=== PATIENT | female | born 1940 | race Caucasian/White ===

== ENCOUNTER 2017-03-20 16:01 | Emergency (ER) | payer OTHER ==
[~2017-03-20] VITALS: Ht 162.6 cm; Wt 108.4 kg
[2017-03-20 16:59] VITALS: BP 170/81
== END 2017-03-20 17:29 | disposition home or self-care (01) ==
LOC: ER 16:07
DX: T17.1XXA Foreign body in nostril, initial encounter (principal); I10 Essential (primary) hypertension; M10.9 Gout, unspecified; Z90.89 Acquired absence of other organs; Z90.710 Acquired absence of both cervix and uterus; Z88.8 Allergy status to other drugs, medicaments and biological substances; W45.8XXA Other foreign body or object entering through skin, initial encounter; Y93.89 Activity, other specified; Y99.8 Other external cause status; Y92.89 Other specified places as the place of occurrence of the external cause

== ENCOUNTER 2021-05-06 14:37 | Emergency (ER) | payer OTHER ==
[~2021-05-06] VITALS: Ht 162.6 cm; Wt 86.6 kg
[2021-05-06] MEDS ORDERED: FUROSEMIDE 40 MG/4 ML VIAL IV ONE (16:15)
[2021-05-06 18:24] LABS: Basophils # (auto) 0 10 ^3/uL (0-0.2); Basophils % (auto) 0.5 % (0.0-2.0); Eosinophils # (auto) 0 10 ^3/uL (0-0.8); Eosinophils % (auto) 0.2 % (0.0-7.0); Hematocrit 31.6 % (36.0-46.0); Hemoglobin 10.5 g/dL (12.2-16.2); Lymphocytes # (auto) 1.2 10 ^3/uL (0.4-5.4); Lymphocytes % (auto) 12.9 % (10.0-50.0); Mean Corpuscular Hemoglobin 29.7 pg (28.0-32.0); Mean Corpuscular Hgb Conc. 33.2 g/dL (32.0-36.0); Mean Corpuscular Volume 89.4 fL (80.0-100.0); Monocytes # (auto) 0.5 10 ^3/uL (0-1.3); Neutrophils # (auto) 7.4 10 ^3/uL (1.6-8.6); Neutrophils % (auto) 81.4 % (37.0-80.0); Red Blood Cells 3.53 10^6/uL (4.0-5.20); Red Cell Distribution Width 13.2 % (11.8-14.3); White Blood Cell 9.1 10^3/uL (4.4-10.8)
[2021-05-06 18:34] LABS: Albumin 2.5 g/dL (3.4-5.0); Calcium 7.6 mg/dL (8.5-10.1); Potassium 3.9 mmol/L (3.5-5.1)
[2021-05-06 18:40] LABS: BUN/Creatinine Ratio 15.8; Bilirubin, Total 0.6 mg/dL (0.2-1.0); Total Protein 5.9 g/dL (6.4-8.2)
[2021-05-06] MEDS ORDERED: HYDROcodone-ACET 5/325MG TAB PO ONE (19:30)
[2021-05-07] MEDS ORDERED: HYDROcodone-ACET 5/325MG TAB PO ONE (01:00)
[2021-05-07 01:05] VITALS: BP 108/75
== END 2021-05-07 01:40 | disposition home or self-care (01) ==
LOC: ER 14:37 → EDBD 14:37 → ER 05-07 01:40
DX: R07.89 Other chest pain (principal); I11.0 Hypertensive heart disease with heart failure; I50.9 Heart failure, unspecified; Z90.710 Acquired absence of both cervix and uterus
CPT/HCPCS: 36415; 71250; 80053; 83880; 84484; 85025; 93005

== ENCOUNTER 2021-06-04 16:00 | Inpatient (IN) | payer OTHER ==
[~2021-06-04] VITALS: Ht 162.6 cm; Wt 88.0 kg
[2021-06-04 21:53] LABS: Albumin 2.7 g/dL (3.4-5.0); Potassium 3.6 mmol/L (3.5-5.1)
[2021-06-04 21:54] LABS: Magnesium 2.4 mg/dL (1.6-2.6)
[2021-06-04 21:58] LABS: Phosphorus 3.5 mg/dL (2.5-4.90)
[2021-06-04 22:13] LABS: BUN/Creatinine Ratio 15.2; Bilirubin, Total 0.9 mg/dL (0.2-1.0); Total Protein 6.2 g/dL (6.4-8.2)
[2021-06-04 22:20] LABS: Basophils # (auto) 0 10 ^3/uL (0-0.2); Basophils % (auto) 0.4 % (0.0-2.0); Eosinophils # (auto) 0 10 ^3/uL (0-0.8); Eosinophils % (auto) 0.1 % (0.0-7.0); Hematocrit 29.4 % (36.0-46.0); Hemoglobin 9.9 g/dL (12.2-16.2); Lymphocytes # (auto) 0.6 10 ^3/uL (0.4-5.4); Lymphocytes % (auto) 7.3 % (10.0-50.0); Mean Corpuscular Hemoglobin 30.2 pg (28.0-32.0); Mean Corpuscular Hgb Conc. 33.5 g/dL (32.0-36.0); Mean Corpuscular Volume 90.1 fL (80.0-100.0); Monocytes # (auto) 0.3 10 ^3/uL (0-1.3); Monocytes % (auto) 4.2 % (0.0-12.0); Red Blood Cells 3.26 10^6/uL (4.0-5.20); Red Cell Distribution Width 14.1 % (11.8-14.3); White Blood Cell 7.9 10^3/uL (4.4-10.8)
[2021-06-04] MEDS ORDERED: SODIUM CHLORIDE 0.9% 500 ML IV ONE (23:45)
[2021-06-05] MEDS ORDERED: ASPirin 325 MG TAB PO ONE (00:45)
[2021-06-05] MEDS ORDERED: SODIUM CHLORIDE 0.9% 500 ML IV ONE (01:30)
[2021-06-05] MEDS ORDERED: NITROGLYCERIN 0.4 MG SL TAB SL PRN ×2 (18:15→21:30)
[2021-06-05] MEDS ORDERED: MORPHINE SULFATE INJECTION 2 MG/ML SYRG IV PRN ×3 (18:15→21:30)
[2021-06-05] MEDS ORDERED: LACTATED RINGER'S 1,000 ML IV ONE (19:45)
[2021-06-05] MEDS ORDERED: PANTOPRAZOLE 40 MG/10 ML VIAL INJ IV ONE ×2 (19:45→20:45)
[2021-06-05 19:58] LABS: Cholesterol 108 mg/dL (< 200); HDL Cholesterol 32 mg/dL (40-59); LDL Cholesterol 62 mg/dL (< 100); Triglycerides 103 mg/dL (< 150)
[2021-06-05] MEDS ORDERED: ARTIFICIAL TEARS 15ml EACHEYE PRN (20:45)
[2021-06-05] MEDS ORDERED: CYANOCOBALAMIN 500 MCG TAB PO ONE (20:45)
[2021-06-05] MEDS ORDERED: ARTIFICIAL TEARS 15ml EACHEYE ONE (20:45)
[2021-06-05] MEDS ORDERED: ZINC SULFATE 220mg CAP or TAB PO ONE (20:45)
[2021-06-05] MEDS ORDERED: ENOXAPARIN SOD 30 MG/0.3 ML SYRINGE SC ONE (21:00)
[2021-06-05 21:25] LABS: Uric Acid 14.9 mg/dL (2.6-6.0)
[2021-06-05] MEDS ORDERED: LORazepam 0.5 MG TAB PO PRN (21:30)
[2021-06-05] MEDS ORDERED: ACETAMINOPHEN 325 MG TAB PO PRN (21:30)
[2021-06-05] MEDS ORDERED: ALUM & MAG HYDROX-SIMETH LIQ(MAALOX) 30 ML PO PRN (21:30)
[2021-06-05] MEDS ORDERED: METOCLOPRAMIDE HCL 5MG/ml INJ 2ml VIAL IV PRN (21:30)
[2021-06-05] MEDS ORDERED: DOCUSATE SOD 100 MG CAP PO PRN (21:30)
[2021-06-05 21:34] LABS: CRP High Sensitivity 2.26 mg/dL (< 0.3)
[2021-06-05 22:00] VITALS: BP 134/55
[2021-06-05 22:28] VITALS: BP 134/55
[2021-06-05] MEDS: ATORVASTATIN 20 MG TAB PO SCH (23:27)
[2021-06-05] MEDS: SODIUM CHLORIDE 0.9% 1,000 ML IV SCH (23:29)
[2021-06-06] MEDS: HYDROcodone-ACET 5/325MG TAB PO PRN ×3 (02:29→18:43)
[2021-06-06 03:09] LABS: Urine Bacteria MOD /hpf (None Seen); Urine Blood Negative /uL (Negative); Urine Specific Gravity 1.014 (1.001-1.035); Urine WBC 11 /hpf (0 - 5); Urine WBC Clumps PRESENT /hpf (None Seen)
[2021-06-06 03:23] LABS: Alcohol, Urine < 3.0 mg/dL (0-10); Amphetamine Screen, Urine NEGATIVE (NEGATIVE); Barbiturate Scree,Urine NEGATIVE (NEGATIVE); Benzodiazephine Screen, Urine NEGATIVE (NEGATIVE); Cannabinoid Screen, Urine NEGATIVE (NEGATIVE); Cocaine Screen, Urine NEGATIVE (NEGATIVE); Opiate Scree,Urine NEGATIVE (NEGATIVE); Phencyclidine Screen, Urine NEGATIVE (NEGATIVE)
[2021-06-06 04:14] LABS: Basophils # (auto) 0 10 ^3/uL (0-0.2); Basophils % (auto) 0.7 % (0.0-2.0); Eosinophils # (auto) 0 10 ^3/uL (0-0.8); Eosinophils % (auto) 0.1 % (0.0-7.0); Hematocrit 27.1 % (36.0-46.0); Hemoglobin 9.2 g/dL (12.2-16.2); Lymphocytes # (auto) 0.6 10 ^3/uL (0.4-5.4); Lymphocytes % (auto) 8.7 % (10.0-50.0); Mean Corpuscular Hemoglobin 30.4 pg (28.0-32.0); Mean Corpuscular Hgb Conc. 34.1 g/dL (32.0-36.0); Mean Corpuscular Volume 89.4 fL (80.0-100.0); Monocytes # (auto) 0.3 10 ^3/uL (0-1.3); Monocytes % (auto) 4.7 % (0.0-12.0); Neutrophils # (auto) 5.8 10 ^3/uL (1.6-8.6); Neutrophils % (auto) 85.8 % (37.0-80.0); Nucleated Red Blood Cells % 0.1 %; Red Blood Cells 3.03 10^6/uL (4.0-5.20); White Blood Cell 6.8 10^3/uL (4.4-10.8)
[2021-06-06 04:33] LABS: INR 1.04 (0.9-1.15); Partial Thromboplastin Time 27.7 sec (23.6-33.0)
[2021-06-06 04:35] LABS: Albumin 2.4 g/dL (3.4-5.0); Calcium 7.7 mg/dL (8.5-10.1); Magnesium 2.7 mg/dL (1.6-2.6)
[2021-06-06 04:41] LABS: BUN/Creatinine Ratio 19.4; Phosphorus 2.6 mg/dL (2.5-4.90); Total Protein 5.4 g/dL (6.4-8.2)
[2021-06-06 05:00] VITALS: BP 117/86
[2021-06-06 05:25] LABS: Potassium 2.7 mmol/L (3.5-5.1)
[2021-06-06] MEDS ORDERED: POTASSIUM CHLORIDE 60 MEQ, LIDOCAINE 1% (LOCAL ANESTH.) 6 ML in SODIUM CHL 0.9% 500 ML IV ONE (05:45)
[2021-06-06 09:00] VITALS: BP 115/50
[2021-06-06] MEDS: SODIUM CHLORIDE 0.9% 1,000 ML IV SCH (09:05)
[2021-06-06] MEDS ORDERED: PANTOPRAZOLE 40 MG/10 ML VIAL INJ IV SCH (10:00)
[2021-06-06 10:29] LABS: Folate (Folic Acid) 9.62 ng/mL (5.38-24)
[2021-06-06] MEDS ORDERED: GASTROGRAFIN 120 ML SOL ONE (10:31)
[2021-06-06] MEDS ORDERED: EZ-GAS II GRANULES (RADIOLOGY USE) PO ONE (10:32)
[2021-06-06] MEDS: ENOXAPARIN SOD 30 MG/0.3 ML SYRINGE SC SCH (10:46)
[2021-06-06] MEDS: ASPirin 81 mg TAB PO SCH (10:46)
[2021-06-06] MEDS: ZINC SULFATE 220mg CAP or TAB PO SCH (10:46)
[2021-06-06] MEDS: PANTOPRAZOLE 40 MG/10 ML VIAL INJ IV SCH (10:46)
[2021-06-06] MEDS: CYANOCOBALAMIN 500 MCG TAB PO SCH (10:47)
[2021-06-06 10:51] LABS: Free T4 (Free Thyroxine) 0.99 ng/dL (0.89-1.76)
[2021-06-06 10:52] LABS: Free T3 1.88 pg/mL (2.3-4.2)
[2021-06-06 13:00] VITALS: BP 123/67
[2021-06-06 22:00] VITALS: BP 141/76
[2021-06-06] MEDS: ATORVASTATIN 20 MG TAB PO SCH (22:00)
[2021-06-07] MEDS: SODIUM CHLORIDE 0.9% 1,000 ML IV SCH ×3 (03:12→21:12)
[2021-06-07] MEDS: HYDROcodone-ACET 5/325MG TAB PO PRN ×2 (03:51→23:29)
[2021-06-07 06:27] LABS: Basophils # (auto) 0 10 ^3/uL (0-0.2); Basophils % (auto) 0.3 % (0.0-2.0); Eosinophils # (auto) 0 10 ^3/uL (0-0.8); Eosinophils % (auto) 0.2 % (0.0-7.0); Hematocrit 26.1 % (36.0-46.0); Hemoglobin 8.8 g/dL (12.2-16.2); Lymphocytes # (auto) 0.5 10 ^3/uL (0.4-5.4); Mean Corpuscular Hemoglobin 30.2 pg (28.0-32.0); Mean Corpuscular Hgb Conc. 33.9 g/dL (32.0-36.0); Mean Corpuscular Volume 89.2 fL (80.0-100.0); Monocytes # (auto) 0.2 10 ^3/uL (0-1.3); Neutrophils # (auto) 3.9 10 ^3/uL (1.6-8.6); Neutrophils % (auto) 84.5 % (37.0-80.0); Red Blood Cells 2.93 10^6/uL (4.0-5.20); Red Cell Distribution Width 14.1 % (11.8-14.3); White Blood Cell 4.7 10^3/uL (4.4-10.8)
[2021-06-07 06:36] LABS: BUN/Creatinine Ratio 20.3; Calcium 7.5 mg/dL (8.5-10.1); Magnesium 3.2 mg/dL (1.6-2.6); Potassium 3.1 mmol/L (3.5-5.1)
[2021-06-07 09:31] VITALS: BP 119/71
[2021-06-07] MEDS: COLCHICINE 0.6 MG CAP PO SCH (10:27)
[2021-06-07] MEDS: CYANOCOBALAMIN 500 MCG TAB PO SCH (10:27)
[2021-06-07] MEDS: ASPirin 81 mg TAB PO SCH (10:27)
[2021-06-07] MEDS: PANTOPRAZOLE 40 MG/10 ML VIAL INJ IV SCH (10:27)
[2021-06-07] MEDS: ENOXAPARIN SOD 30 MG/0.3 ML SYRINGE SC SCH (10:27)
[2021-06-07] MEDS: ZINC SULFATE 220mg CAP or TAB PO SCH (10:27)
[2021-06-07] MEDS ORDERED: POTASSIUM CHL 20 Meq TABLET PO ONE (12:00)
[2021-06-07 13:00] VITALS: BP 118/65
[2021-06-07 18:09] VITALS: BP 106/46
[2021-06-07 20:00] VITALS: BP 124/59
[2021-06-07] MEDS: ATORVASTATIN 20 MG TAB PO SCH (21:08)
[2021-06-07] MEDS: MUPIROCIN 2% OINT 15gm or 22gm TOP SCH (21:09)
[2021-06-07 22:00] VITALS: BP 124/59
[2021-06-08 06:43] LABS: Basophils # (auto) 0 10 ^3/uL (0-0.2); Basophils % (auto) 0.4 % (0.0-2.0); Eosinophils # (auto) 0 10 ^3/uL (0-0.8); Eosinophils % (auto) 0.4 % (0.0-7.0); Hematocrit 25.1 % (36.0-46.0); Hemoglobin 8.5 g/dL (12.2-16.2); Lymphocytes # (auto) 0.6 10 ^3/uL (0.4-5.4); Lymphocytes % (auto) 15.9 % (10.0-50.0); Mean Corpuscular Hemoglobin 30.5 pg (28.0-32.0); Mean Corpuscular Hgb Conc. 33.8 g/dL (32.0-36.0); Mean Corpuscular Volume 90.2 fL (80.0-100.0); Monocytes # (auto) 0.2 10 ^3/uL (0-1.3); Monocytes % (auto) 4.9 % (0.0-12.0); Neutrophils # (auto) 3.1 10 ^3/uL (1.6-8.6); Neutrophils % (auto) 78.4 % (37.0-80.0); Nucleated Red Blood Cells % 0.1 %; Red Blood Cells 2.78 10^6/uL (4.0-5.20); Red Cell Distribution Width 14.3 % (11.8-14.3)
[2021-06-08 07:04] LABS: BUN/Creatinine Ratio 16.7; Calcium 7.6 mg/dL (8.5-10.1); Potassium 3.7 mmol/L (3.5-5.1)
[2021-06-08 09:00] VITALS: BP 119/63
[2021-06-08] MEDS: ENOXAPARIN SOD 40 MG/0.4 ML SYRINGE SC SCH (10:00)
[2021-06-08] MEDS: SODIUM CHLORIDE 0.9% 1,000 ML IV SCH (10:54)
[2021-06-08] MEDS: ASPirin 81 mg TAB PO SCH (10:57)
[2021-06-08] MEDS: COLCHICINE 0.6 MG CAP PO SCH (10:57)
[2021-06-08] MEDS: CYANOCOBALAMIN 500 MCG TAB PO SCH (10:57)
[2021-06-08] MEDS: PANTOPRAZOLE 40 MG/10 ML VIAL INJ IV SCH (10:57)
[2021-06-08] MEDS: ZINC SULFATE 220mg CAP or TAB PO SCH (10:58)
[2021-06-08] MEDS: MUPIROCIN 2% OINT 15gm or 22gm TOP SCH ×2 (10:58→21:08)
[2021-06-08 13:00] VITALS: BP 129/66
[2021-06-08 16:43] VITALS: BP 117/67
[2021-06-08] MEDS: ATORVASTATIN 20 MG TAB PO SCH (21:07)
[2021-06-08] MEDS: ONDANSETRON HCL 4 MG/2 ML VIAL IV PRN (21:07)
[2021-06-08 22:20] VITALS: BP 101/66
[2021-06-09] MEDS: SODIUM CHLORIDE 0.9% 1,000 ML IV SCH ×2 (03:45→13:54)
[2021-06-09 05:08] VITALS: BP 135/69
[2021-06-09 08:26] LABS: BUN/Creatinine Ratio 15.4; Calcium 7.9 mg/dL (8.5-10.1)
[2021-06-09 09:00] VITALS: BP 128/63
[2021-06-09] MEDS: ASPirin 81 mg TAB PO SCH (10:35)
[2021-06-09] MEDS: PANTOPRAZOLE 40 MG/10 ML VIAL INJ IV SCH (10:35)
[2021-06-09] MEDS: COLCHICINE 0.6 MG CAP PO SCH (10:36)
[2021-06-09] MEDS: ZINC SULFATE 220mg CAP or TAB PO SCH (10:36)
[2021-06-09] MEDS: CYANOCOBALAMIN 500 MCG TAB PO SCH (10:36)
[2021-06-09] MEDS: MUPIROCIN 2% OINT 15gm or 22gm TOP SCH ×2 (10:37→22:00)
[2021-06-09] MEDS: ENOXAPARIN SOD 40 MG/0.4 ML SYRINGE SC SCH (10:37)
[2021-06-09] MEDS ORDERED: CHOLECALCIFEROL (VITD3) 2,000 UNIT CAP/TAB PO ONE (12:15)
[2021-06-09 13:00] VITALS: BP 113/46
[2021-06-09] MEDS ORDERED: cefTRIAXone 1GM/50ML D5W 50 ML IV ONE (14:00)
[2021-06-09 17:00] VITALS: BP 127/70
[2021-06-09] MEDS: ONDANSETRON HCL 4 MG/2 ML VIAL IV PRN (18:39)
[2021-06-09] MEDS: ATORVASTATIN 20 MG TAB PO SCH (21:45)
[2021-06-09] MEDS: ASCORBIC ACID 500 MG TAB PO SCH (21:46)
[2021-06-09] MEDS: MUPIROCIN 2% OINT 15gm or 22gm EACHNOSTRI SCH (22:00)
[2021-06-09 22:23] VITALS: BP 120/67
[2021-06-10] MEDS: SODIUM CHLORIDE 0.9% 1,000 ML IV SCH ×3 (04:24→20:58)
[2021-06-10 04:53] VITALS: BP 126/55
[2021-06-10 07:28] LABS: Calcium 7.7 mg/dL (8.5-10.1); Potassium 3.3 mmol/L (3.5-5.1)
[2021-06-10 07:30] LABS: BUN/Creatinine Ratio 13.4
[2021-06-10 08:40] VITALS: BP 121/53
[2021-06-10] MEDS: PANTOPRAZOLE 40 MG/10 ML VIAL INJ IV SCH (09:39)
[2021-06-10] MEDS: COLCHICINE 0.6 MG CAP PO SCH (09:40)
[2021-06-10] MEDS: CYANOCOBALAMIN 500 MCG TAB PO SCH ×2 (09:40→10:00)
[2021-06-10] MEDS: ASPirin 81 mg TAB PO SCH ×2 (09:40→10:00)
[2021-06-10] MEDS: ZINC SULFATE 220mg CAP or TAB PO SCH ×2 (09:40→10:00)
[2021-06-10] MEDS: ASCORBIC ACID 500 MG TAB PO SCH ×3 (09:40→21:07)
[2021-06-10] MEDS: ENOXAPARIN SOD 40 MG/0.4 ML SYRINGE SC SCH (09:41)
[2021-06-10] MEDS: CHOLECALCIFEROL (VITD3) 2,000 UNIT CAP/TAB PO SCH ×2 (09:41→10:00)
[2021-06-10] MEDS: cefTRIAXone 1GM/50ML D5W 50 ML IV SCH (09:42)
[2021-06-10] MEDS: POTASSIUM CHL 20 Meq TABLET PO ONE ×2 (11:45→14:25)
[2021-06-10 11:55] VITALS: BP 130/69
[2021-06-10] MEDS: MUPIROCIN 2% OINT 15gm or 22gm TOP SCH ×2 (14:28→20:58)
[2021-06-10] MEDS: MUPIROCIN 2% OINT 15gm or 22gm EACHNOSTRI SCH ×2 (16:44→20:58)
[2021-06-10 16:56] VITALS: BP 124/57
[2021-06-10] MEDS: ATORVASTATIN 20 MG TAB PO SCH (21:07)
[2021-06-10 21:36] VITALS: BP 117/57
[2021-06-11 05:35] VITALS: BP 124/74
[2021-06-11 06:34] LABS: Basophils # (auto) 0 10 ^3/uL (0-0.2); Basophils % (auto) 0.1 % (0.0-2.0); Eosinophils # (auto) 0 10 ^3/uL (0-0.8); Eosinophils % (auto) 0.2 % (0.0-7.0); Hemoglobin 9.2 g/dL (12.2-16.2); Lymphocytes # (auto) 0.4 10 ^3/uL (0.4-5.4); Lymphocytes % (auto) 14.2 % (10.0-50.0); Mean Corpuscular Hemoglobin 29.6 pg (28.0-32.0); Mean Corpuscular Hgb Conc. 32.8 g/dL (32.0-36.0); Mean Corpuscular Volume 90.5 fL (80.0-100.0); Monocytes # (auto) 0.2 10 ^3/uL (0-1.3); Neutrophils # (auto) 2.2 10 ^3/uL (1.6-8.6); Neutrophils % (auto) 77.5 % (37.0-80.0); Nucleated Red Blood Cells % 0.3 %; Red Cell Distribution Width 14.3 % (11.8-14.3); White Blood Cell 2.9 10^3/uL (4.4-10.8)
[2021-06-11 06:54] LABS: Potassium 3.4 mmol/L (3.5-5.1)
[2021-06-11 07:08] LABS: BUN/Creatinine Ratio 10.5; Calcium 7.6 mg/dL (8.5-10.1); Magnesium 2.7 mg/dL (1.6-2.6)
[2021-06-11] MEDS: cefTRIAXone 1GM/50ML D5W 50 ML IV SCH (08:57)
[2021-06-11 09:00] VITALS: BP 115/52
[2021-06-11] MEDS: MUPIROCIN 2% OINT 15gm or 22gm EACHNOSTRI SCH ×2 (09:00→21:06)
[2021-06-11] MEDS: ASPirin 81 mg TAB PO SCH (09:00)
[2021-06-11] MEDS: COLCHICINE 0.6 MG CAP PO SCH (09:00)
[2021-06-11] MEDS: ZINC SULFATE 220mg CAP or TAB PO SCH (09:13)
[2021-06-11] MEDS: CYANOCOBALAMIN 500 MCG TAB PO SCH (09:13)
[2021-06-11] MEDS: PANTOPRAZOLE 40 MG/10 ML VIAL INJ IV SCH (09:13)
[2021-06-11] MEDS: ASCORBIC ACID 500 MG TAB PO SCH ×2 (09:14→21:06)
[2021-06-11] MEDS: MUPIROCIN 2% OINT 15gm or 22gm TOP SCH (09:14)
[2021-06-11] MEDS: CHOLECALCIFEROL (VITD3) 2,000 UNIT CAP/TAB PO SCH (09:14)
[2021-06-11] MEDS: ENOXAPARIN SOD 40 MG/0.4 ML SYRINGE SC SCH (09:15)
[2021-06-11] MEDS ORDERED: REMDESIVIR PER PHARMACY 0 ML IV SCH (09:15)
[2021-06-11 13:00] VITALS: BP 132/72
[2021-06-11] MEDS ORDERED: REMDESIVIR 200 MG in NS 210ml LOADING DOSE ADULT IV ONE (15:00)
[2021-06-11 17:00] VITALS: BP 115/61
[2021-06-11] MEDS: ONDANSETRON HCL 4 MG/2 ML VIAL IV PRN (20:26)
[2021-06-11] MEDS: ATORVASTATIN 20 MG TAB PO SCH (21:06)
[2021-06-11 22:00] VITALS: BP 138/74
[2021-06-12] MEDS: SODIUM CHLORIDE 0.9% 1,000 ML IV SCH ×3 (01:53→21:49)
[2021-06-12 05:00] VITALS: BP 145/69
[2021-06-12 07:45] LABS: Albumin 2.5 g/dL (3.4-5.0); Potassium 3.1 mmol/L (3.5-5.1)
[2021-06-12 07:49] LABS: Bilirubin, Total 0.3 mg/dL (0.2-1.0); Calcium 7.6 mg/dL (8.5-10.1); Total Protein 5.7 g/dL (6.4-8.2)
[2021-06-12 09:09] VITALS: BP 132/66
[2021-06-12] MEDS: COLCHICINE 0.6 MG CAP PO SCH (09:16)
[2021-06-12] MEDS: ASPirin 81 mg TAB PO SCH (09:16)
[2021-06-12] MEDS: ENOXAPARIN SOD 40 MG/0.4 ML SYRINGE SC SCH (09:16)
[2021-06-12] MEDS: cefTRIAXone 1GM/50ML D5W 50 ML IV SCH (09:26)
[2021-06-12] MEDS: MUPIROCIN 2% OINT 15gm or 22gm EACHNOSTRI SCH ×2 (09:26→21:36)
[2021-06-12] MEDS: PANTOPRAZOLE 40 MG/10 ML VIAL INJ IV SCH (09:27)
[2021-06-12] MEDS: ZINC SULFATE 220mg CAP or TAB PO SCH (10:00)
[2021-06-12] MEDS: CHOLECALCIFEROL (VITD3) 2,000 UNIT CAP/TAB PO SCH (10:00)
[2021-06-12] MEDS: ASCORBIC ACID 500 MG TAB PO SCH ×2 (10:00→21:36)
[2021-06-12] MEDS: CYANOCOBALAMIN 500 MCG TAB PO SCH (10:00)
[2021-06-12] MEDS ORDERED: THROAT LOZENGES(CEPASTAT) MT PRN (12:00)
[2021-06-12 12:31] VITALS: BP 120/69
[2021-06-12] MEDS: REMDESIVIR 100mg 100 MG in SODIUM CHL 0.9% 230 ML IV SCH (15:44)
[2021-06-12 17:00] VITALS: BP 141/69
[2021-06-12] MEDS: ATORVASTATIN 20 MG TAB PO SCH (21:36)
[2021-06-12 21:49] VITALS: BP 120/61
[2021-06-13 05:47] VITALS: BP 127/71
[2021-06-13 07:06] LABS: Albumin 2.2 g/dL (3.4-5.0); Calcium 7.4 mg/dL (8.5-10.1)
[2021-06-13 07:08] LABS: Bilirubin, Total 0.2 mg/dL (0.2-1.0); Total Protein 5.1 g/dL (6.4-8.2)
[2021-06-13 08:30] VITALS: BP 148/90
[2021-06-13] MEDS: CYANOCOBALAMIN 500 MCG TAB PO SCH ×2 (10:00→10:21)
[2021-06-13] MEDS: CHOLECALCIFEROL (VITD3) 2,000 UNIT CAP/TAB PO SCH ×2 (10:00→10:20)
[2021-06-13] MEDS: ENOXAPARIN SOD 40 MG/0.4 ML SYRINGE SC SCH (10:00)
[2021-06-13] MEDS: ZINC SULFATE 220mg CAP or TAB PO SCH (10:00)
[2021-06-13] MEDS: ASCORBIC ACID 500 MG TAB PO SCH ×3 (10:00→22:00)
[2021-06-13] MEDS: COLCHICINE 0.6 MG CAP PO SCH (10:21)
[2021-06-13] MEDS: ASPirin 81 mg TAB PO SCH (10:21)
[2021-06-13] MEDS: PANTOPRAZOLE 40 MG/10 ML VIAL INJ IV SCH (10:25)
[2021-06-13] MEDS: cefTRIAXone 1GM/50ML D5W 50 ML IV SCH (10:26)
[2021-06-13] MEDS: MUPIROCIN 2% OINT 15gm or 22gm EACHNOSTRI SCH ×2 (10:26→22:13)
[2021-06-13] MEDS ORDERED: POTASSIUM CHL 20 Meq TABLET PO ONE (11:15)
[2021-06-13 12:30] VITALS: BP 124/55
[2021-06-13] MEDS: POTASSIUM CHL 20MEQ/50ML 50 ML IV SCH ×2 (15:31→16:56)
[2021-06-13] MEDS: SODIUM CHLORIDE 0.9% 1,000 ML IV SCH (15:37)
[2021-06-13 16:58] VITALS: BP 125/64
[2021-06-13] MEDS: REMDESIVIR 100mg 100 MG in SODIUM CHL 0.9% 230 ML IV SCH (20:13)
[2021-06-13 22:00] VITALS: BP 143/71
[2021-06-13] MEDS: ATORVASTATIN 20 MG TAB PO SCH (22:00)
[2021-06-14 05:00] VITALS: BP 162/76
[2021-06-14 06:05] VITALS: BP 138/71
[2021-06-14 07:25] LABS: Potassium 3.5 mmol/L (3.5-5.1)
[2021-06-14 07:36] LABS: Albumin 2.1 g/dL (3.4-5.0); BUN/Creatinine Ratio 11.1; Bilirubin, Total 0.4 mg/dL (0.2-1.0); Calcium 7.3 mg/dL (8.5-10.1); Total Protein 4.7 g/dL (6.4-8.2)
[2021-06-14 09:00] VITALS: BP 131/52
[2021-06-14] MEDS: ASCORBIC ACID 500 MG TAB PO SCH ×2 (10:00→22:00)
[2021-06-14] MEDS: CHOLECALCIFEROL (VITD3) 2,000 UNIT CAP/TAB PO SCH (10:00)
[2021-06-14] MEDS: ZINC SULFATE 220mg CAP or TAB PO SCH (10:00)
[2021-06-14] MEDS: CYANOCOBALAMIN 500 MCG TAB PO SCH (10:00)
[2021-06-14] MEDS: ENOXAPARIN SOD 40 MG/0.4 ML SYRINGE SC SCH (10:00)
[2021-06-14] MEDS: cefTRIAXone 1GM/50ML D5W 50 ML IV SCH (10:13)
[2021-06-14] MEDS: SODIUM CHLORIDE 0.9% 1,000 ML IV SCH ×2 (10:13→17:30)
[2021-06-14] MEDS: MUPIROCIN 2% OINT 15gm or 22gm EACHNOSTRI SCH (10:13)
[2021-06-14] MEDS: PANTOPRAZOLE 40 MG/10 ML VIAL INJ IV SCH (10:13)
[2021-06-14] MEDS: COLCHICINE 0.6 MG CAP PO SCH (10:14)
[2021-06-14] MEDS: ASPirin 81 mg TAB PO SCH (10:14)
[2021-06-14 13:00] VITALS: BP 117/68
[2021-06-14] MEDS: REMDESIVIR 100mg 100 MG in SODIUM CHL 0.9% 230 ML IV SCH (15:00)
[2021-06-14 17:00] VITALS: BP 106/41
[2021-06-14 22:00] VITALS: BP 131/70
[2021-06-14] MEDS: ATORVASTATIN 20 MG TAB PO SCH (22:00)
[2021-06-15 05:00] VITALS: BP 151/85
[2021-06-15 06:37] LABS: Basophils # (auto) 0 10 ^3/uL (0-0.2); Basophils % (auto) 0.2 % (0.0-2.0); Eosinophils # (auto) 0 10 ^3/uL (0-0.8); Eosinophils % (auto) 0.3 % (0.0-7.0); Hematocrit 28.5 % (36.0-46.0); Hemoglobin 9.6 g/dL (12.2-16.2); Lymphocytes # (auto) 0.6 10 ^3/uL (0.4-5.4); Lymphocytes % (auto) 22.6 % (10.0-50.0); Mean Corpuscular Hgb Conc. 33.6 g/dL (32.0-36.0); Mean Corpuscular Volume 89.3 fL (80.0-100.0); Monocytes # (auto) 0.2 10 ^3/uL (0-1.3); Monocytes % (auto) 8.1 % (0.0-12.0); Neutrophils # (auto) 1.8 10 ^3/uL (1.6-8.6); Neutrophils % (auto) 68.8 % (37.0-80.0); Nucleated Red Blood Cells % 0.2 %; Red Blood Cells 3.19 10^6/uL (4.0-5.20); Red Cell Distribution Width 14.8 % (11.8-14.3); White Blood Cell 2.6 10^3/uL (4.4-10.8)
[2021-06-15 06:48] LABS: BUN/Creatinine Ratio 10.6; Calcium 7.6 mg/dL (8.5-10.1); Potassium 3.9 mmol/L (3.5-5.1)
[2021-06-15 09:00] VITALS: BP 158/70
[2021-06-15] MEDS: CYANOCOBALAMIN 500 MCG TAB PO SCH (10:00)
[2021-06-15] MEDS: ZINC SULFATE 220mg CAP or TAB PO SCH (10:00)
[2021-06-15] MEDS: ASCORBIC ACID 500 MG TAB PO SCH ×2 (10:00→21:28)
[2021-06-15] MEDS: CHOLECALCIFEROL (VITD3) 2,000 UNIT CAP/TAB PO SCH (10:00)
[2021-06-15] MEDS ORDERED: DexAMETHasone 4 MG TAB PO ONE (11:15)
[2021-06-15] MEDS: cefTRIAXone 1GM/50ML D5W 50 ML IV SCH (11:39)
[2021-06-15] MEDS: PANTOPRAZOLE 40 MG/10 ML VIAL INJ IV SCH (11:39)
[2021-06-15] MEDS: ASPirin 81 mg TAB PO SCH (11:40)
[2021-06-15] MEDS: COLCHICINE 0.6 MG CAP PO SCH (11:40)
[2021-06-15] MEDS: ENOXAPARIN SOD 40 MG/0.4 ML SYRINGE SC SCH (11:41)
[2021-06-15] MEDS: SODIUM CHLORIDE 0.9% 1,000 ML IV SCH (11:43)
[2021-06-15 13:00] VITALS: BP 120/71
[2021-06-15 17:00] VITALS: BP 129/66
[2021-06-15] MEDS ORDERED: REMDESIVIR 100mg 100 MG in SODIUM CHL 0.9% 230 ML IV SCH (17:30)
[2021-06-15] MEDS: ATORVASTATIN 20 MG TAB PO SCH (21:27)
[2021-06-15 22:00] VITALS: BP 141/76
[2021-06-16 05:00] VITALS: BP 162/110
[2021-06-16] MEDS: SODIUM CHLORIDE 0.9% 1,000 ML IV SCH ×2 (06:46→19:30)
[2021-06-16 07:20] LABS: Calcium 7.5 mg/dL (8.5-10.1); Potassium 3.4 mmol/L (3.5-5.1)
[2021-06-16 07:22] LABS: BUN/Creatinine Ratio 10.1
[2021-06-16 09:00] VITALS: BP 150/75
[2021-06-16] MEDS: CYANOCOBALAMIN 500 MCG TAB PO SCH (10:00)
[2021-06-16] MEDS: CHOLECALCIFEROL (VITD3) 2,000 UNIT CAP/TAB PO SCH (10:00)
[2021-06-16] MEDS: ZINC SULFATE 220mg CAP or TAB PO SCH (10:00)
[2021-06-16] MEDS: DexAMETHasone 4 MG TAB PO SCH (10:00)
[2021-06-16] MEDS: ASCORBIC ACID 500 MG TAB PO SCH ×2 (10:00→21:41)
[2021-06-16] MEDS: cefTRIAXone 1GM/50ML D5W 50 ML IV SCH (10:27)
[2021-06-16] MEDS: PANTOPRAZOLE 40 MG/10 ML VIAL INJ IV SCH (10:27)
[2021-06-16] MEDS: ASPirin 81 mg TAB PO SCH (10:27)
[2021-06-16] MEDS: COLCHICINE 0.6 MG CAP PO SCH (10:27)
[2021-06-16] MEDS: ENOXAPARIN SOD 40 MG/0.4 ML SYRINGE SC SCH (10:28)
[2021-06-16 13:00] VITALS: BP 160/61
[2021-06-16 17:00] VITALS: BP 140/77
[2021-06-16] MEDS ORDERED: ATOR20TA50 PO (19:08)
[2021-06-16] MEDS: ATORVASTATIN 20 MG TAB PO SCH (21:41)
[2021-06-16 22:00] VITALS: BP 145/89
[2021-06-17 05:00] VITALS: BP 142/78
[2021-06-17 08:15] VITALS: BP 142/81
[2021-06-17] MEDS: cefTRIAXone 1GM/50ML D5W 50 ML IV SCH (08:52)
[2021-06-17 09:00] VITALS: BP 142/81
[2021-06-17] MEDS: PANTOPRAZOLE 40 MG/10 ML VIAL INJ IV SCH (09:57)
[2021-06-17] MEDS: ZINC SULFATE 220mg CAP or TAB PO SCH (09:57)
[2021-06-17] MEDS: ASPirin 81 mg TAB PO SCH (09:57)
[2021-06-17] MEDS: CYANOCOBALAMIN 500 MCG TAB PO SCH (09:58)
[2021-06-17] MEDS: COLCHICINE 0.6 MG CAP PO SCH (09:58)
[2021-06-17] MEDS: CHOLECALCIFEROL (VITD3) 2,000 UNIT CAP/TAB PO SCH (09:58)
[2021-06-17] MEDS: ENOXAPARIN SOD 40 MG/0.4 ML SYRINGE SC SCH (09:58)
[2021-06-17] MEDS: ASCORBIC ACID 500 MG TAB PO SCH (09:58)
[2021-06-17] MEDS: DexAMETHasone 4 MG TAB PO SCH ×2 (09:58→10:00)
[2021-06-17] MEDS: SODIUM CHLORIDE 0.9% 1,000 ML IV SCH (12:05)
[2021-06-17 16:55] VITALS: BP 140/79
== END 2021-06-17 18:08 | disposition hospice, home (50) | DRG 177 ==
LOC: EDUNIT# 16:00 → EDBD 16:00 → ER 16:00 → TELE 06-05 18:10 → TELE-WESTW 06-05 21:47 → TELE-EAST 06-09 04:40
PROVIDERS: ADMIT Hospitalist; ATTEND Internal Medicine
PROC: 05HA33Z Insertion of Infusion Device into Left Brachial Vein, Percutaneous Approach (ICD-10-PCS; 2021-06-09)
PROC: B54NZZA Ultrasonography of Left Upper Extremity Veins, Guidance (ICD-10-PCS; 2021-06-09)
PROC: XW033E5 Introduction of Remdesivir Anti-infective into Peripheral Vein, Percutaneous Approach, New Technology Group 5 (ICD-10-PCS; principal; 2021-06-11)
DX: U07.1 COVID-19 (principal); I21.A1 Myocardial infarction type 2; N17.0 Acute kidney failure with tubular necrosis; R64 Cachexia; E44.0 Moderate protein-calorie malnutrition; N39.0 Urinary tract infection, site not specified; I31.3 Pericardial effusion (noninflammatory); E86.0 Dehydration; D64.9 Anemia, unspecified; M19.90 Unspecified osteoarthritis, unspecified site; K21.9 Gastro-esophageal reflux disease without esophagitis; R62.7 Adult failure to thrive; D72.810 Lymphocytopenia; D72.828 Other elevated white blood cell count; E53.8 Deficiency of other specified B group vitamins; E55.9 Vitamin D deficiency, unspecified; E66.01 Morbid (severe) obesity due to excess calories; E78.5 Hyperlipidemia, unspecified; E87.6 Hypokalemia; R55 Syncope and collapse; R43.2 Parageusia; M10.9 Gout, unspecified; H04.129 Dry eye syndrome of unspecified lacrimal gland; I12.9 Hypertensive chronic kidney disease with stage 1 through stage 4 chronic kidney disease, or unspecified chronic kidney disease; J32.9 Chronic sinusitis, unspecified; R13.10 Dysphagia, unspecified; Z53.20 Procedure and treatment not carried out because of patient's decision for unspecified reasons; Z90.710 Acquired absence of both cervix and uterus; Z91.041 Radiographic dye allergy status; Z68.31 Body mass index [BMI] 31.0-31.9, adult; N18.31 Chronic kidney disease, stage 3a
CPT/HCPCS: 36415; 70450; 71045; 80048; 80053; 80061; 80307; 81001; 82105; 82378; 82550; 82607; 82746; 83605; 83735; 83880; 84100; 84439; 84443; 84481; 84484; 84550; 84630; 85025; 85379; 85610; 85652; 85730; 86038; 86141; 86225; 86301; 86304; 86431; 87040; 87081; 87086; 87426; 93005; 93306; 96360; 96361; 97110; 97116; 97163; 97530; C9113; G0378; J0696; J2001; J2405